=== PATIENT | male | born 1965 | race Caucasian/White ===

== ENCOUNTER 2017-07-26 10:15 | Inpatient (IN) ==
--- NOTE | 2017-07-26 07:04 | Discharge Summary ---
<Vani Aldana - Last Filed: 07/26/17 09:35> Orders not resulted at time of discharge: Pending orders 07/26/17 01:00 XR knee RT limited 1-2V [XR] Routine Hemoglobin and Hematocrit [HEME] Routine Date of Encounter: 07/26/17 - Discharge Diagnosis (1) Arthritis of right knee Priority: Primary Status: Chronic (2) Status post total right knee replacement Priority: Primary Status: Acute - Hospital Course Hospital course: Mr. Zarate is a 52 year old male - Time Spent with Patient Total time spent providing and/or coordinating discharge services: - Discharge Medications Home Medications: Aspirin Enteric Coated [Aspirin EC] 325 mg PO BID 10 Days #20 tablet. [Rx] OxyCODONE Immed Rel [Roxicodone 5 MG] 5 mg PO Q6HR PRN 7 Days #28 tablet [Rx] Allergies/Adverse Reactions: 3 Allergy/AdvReac Type Severity Reaction Status Date / Time No Known Allergies Allergy Verified 07/26/17 10:32 Primary care physician: Norah Levy - Patient Status Disposition: Home, Self-Care Condition: Good - Discharge Instructions Follow Up With: Garrick Malone DO [Primary Care Provider] - <Kunal Ross - Last Filed: 07/27/17 06:25> Orders not resulted at time of discharge: Pending orders 07/26/17 01:00 XR knee RT limited 1-2V [XR] Routine Hemoglobin and Hematocrit [HEME] Routine 07/26/17 11:10 US anesthesia pain block [US] Stat Date of Encounter: 07/27/17 Time of Encounter: 06:24 - Discharge Diagnosis (1) Arthritis of right knee Priority: Primary Status: Chronic (2) Status post total right knee replacement Priority: Primary Status: Acute - Hospital Course Hospital course: Mr. Zarate is a 52 year old male As post right total knee replacement The patient had an uneventful postoperative course. They received antibiotics and physical therapy and were discharged in stable condition. There will follow -up in the office in 2 weeks. - Time Spent with Patient Total time spent providing and/or coordinating discharge services: Primary care physician: Norah Levy - Patient Status Functional capacity at discharge: uses cane/walker Overall status at discharge: patient is progressing back to baseline
[~2017-07-26 10:15] MED LIST: ceFAZolin 2,000 MG in 0.9 % Sodium Chloride 100 ML IVPB SCH
--- NOTE | 2017-07-26 10:20 | Anesthesia Evaluation PreOp ---
Date of Encounter: 07/26/17 Time of Encounter: 11:07 - Past History Planned Operation: right TKA Cardiac History: Denies any Significant Hx Pulmonary History: Denies Any Significant HX SIGNALS COLLECTOR/ANALYST History: Denies Any Significant HX Other Medical History: Denies Any Significant HX Anesthesia History: No Prior Anesthetic Complications, Past Anesthesia (right knee scope with osteochondral autograft 1-18, appy, Left AKS, wrist sx, bilateral shoulder sx) Alcohol Use: none Drug use: none Medications and Allergies Aspirin Enteric Coated [Aspirin EC] 325 mg PO BID 10 Days #20 tablet. [Rx] OxyCODONE Immed Rel [Roxicodone 5 MG] 5 mg PO Q6HR PRN 7 Days #28 tablet [Rx] 3 Allergy/AdvReac Type Severity Reaction Status Date / Time No Known Allergies Allergy Verified 07/26/17 10:32 - Meds/Allergy Pre-op Review Medications Reviewed: Yes Allergies Reviewed: Yes Beta Blockers on Current Med List: No Anesthesia Results - Labs Laboratory Tests 07/20/17 07/20/17 15:44 15:44 Hgb 14.4 Hct 41.5 Plt Count 195 Sodium 141 Potassium 4.9 BUN 17 Creatinine 0.99 Anesthesia Exam Selected Entries 07/26/17 10:35 Temperature 97.8 F Pulse Rate 46 Respiratory Rate 18 Blood Pressure 130/78 O2 Sat by Pulse Oximetry 97 Weight: 85kg - HEENT Pupil (Motor): EOMI Mallampati: III Teeth: Normal Oral Opening: Greater than 3 - SIGNALS COLLECTOR/ANALYST LOC: Oriented SIGNALS COLLECTOR/ANALYST Motor: Normal RUE, Normal LUE, Normal RLE, Normal LLE, Normal Face SIGNALS COLLECTOR/ANALYST Sensory: Normal: RUE, LUE, RLE, LLE, Face - Cardiac Rhythm: Regular Murmur: None - Pulmonary Breath Sounds: bilateral Clear Respiratory Effort: Symmetrical Anesthesia Assess/Plan ASA Score: 1 Modified Stafford Scale for Level of Consciousness: Cooperative, oriented, and tranquil Anesthetic Plan: Regional Monitoring Plan: Standard Monitors Recovery Plan: PACU (Spinal with adductor canal block)
[2017-07-26] MEDS ORDERED: CeFAZolin Syr 2,000MG/20 ML 2,000 MG/20 ML SYRINGE IVPB ONE (10:31)
[2017-07-26] MEDS ORDERED: Ringers Solution, Lactated 1,000 ML IVC SCH (10:45)
[2017-07-26] MEDS ORDERED: Celecoxib 100 MG CAPSULE PO SCH (11:15)
[2017-07-26] MEDS ORDERED: Propofol 500 MG/50 ML INFUS..BTL ONE (11:43)
[2017-07-26] MEDS ORDERED: *HR* Midazolam HCl 2 MG/2 ML VIAL ONE (11:43)
[2017-07-26] MEDS ORDERED: Lidocaine -MPF 2% 2 ML VIAL ONE (11:43)
[2017-07-26] MEDS ORDERED: *HR* FentaNYL (PF) 100 MCG/2 ML VIAL ONE (11:43)
[2017-07-26] MEDS ORDERED: Ondansetron 4 MG/2 ML VIAL ONE ×3 (11:43→16:52)
[2017-07-26] MEDS ORDERED: Morphine Sulfate/PF 5mg/10mL Vial ONE (12:09)
[2017-07-26] MEDS ORDERED: ROPIVACAINE HCL/PF 0.5% 30 ML VIAL ONE (12:10)
--- NOTE | 2017-07-26 12:12 | History & Physical Report ---
Date of Encounter: 07/26/17 Time of Encounter: 12:10 24 Hour HP Update - Instructions Instructions: If the History and Physical is less than 30 days old and was completed prior to A.M. admission and or procedure and has NOT been updated on calendar day of procedure please complete this update prior to performing procedure. - Update Patient reports changes in Medical Condition: No Changes in examination, assessment, or condition: No Changes in Medication: No Preop tests/diagnostics Reviewed: Yes Surgery Remains Indicated: Yes Consent for Planned Operative Procedure(s) Verified: Yes - Pre-Operative Checklist Preoperative Checklist Indicated: No Prophylactic Antibiotic Ordered: Yes Is VTE Prophylaxis Indicated?: Yes
--- NOTE | 2017-07-26 12:52 | Anesthesia Procedures ---
Date of Encounter: 07/26/17 Time of Encounter: 12:50 Procedures: Anesthesia - Nerve Block Procedure Date: 07/26/17 Time: 12:50 Allergies/Adv Reactions: No Known Allergies Allergy (Verified 07/26/17 10:32) Pre-op Diagnosis: oa right knee Surgical Procedure: right total knee Checklist: Correct Patient Identifier, Correct procedure, History checked Correct side: Right Blood Thinner: No Monitor Applied: BP, Pulse Oximetry Sedation: Versed (mg): 2 Sedation: Fentanyl (mcg): 100 Indication: Post Op Analgesia Pre-op Neuro Deficits: No Block Type: Other (ipack) Catheter placed: No Sterile Technique: Yes Ultrasound used: Yes Anatomy identified: Yes Visual spread of Local: Yes Neuro Stimulation: No Blood on Needle Aspiration: No Smooth Injection of Local: Yes Pain with Injection of Local: No Prep: Chlorhexadine Needle: 22 x 50 mm Stimuplex Local: Ropivacaine (0.5%) Volume (cc): 30 Number of Attempts: 1 Complications: None/effective block
[2017-07-26] MEDS ORDERED: Ethanol\\Acetic Acid\\Na Ace\\Ben 1,000 ML IRRIG.SOLN IR ONE (13:00)
[2017-07-26] MEDS ORDERED: EPHEDrine 50 MG/ML VIAL ONE (13:50)
[2017-07-26] MEDS ORDERED: *HR* Meperidine 25 MG/ML SYRINGE IVP PRN (13:53)
[2017-07-26] MEDS ORDERED: *HR* OxyCODONE Immed Rel 5 MG TABLET PO PRN (13:53)
[2017-07-26] MEDS ORDERED: *HR* Promethazine 25 MG/ML VIAL IVP PRN (13:53)
--- NOTE | 2017-07-26 14:24 | Orthopedic Operative Note ---
Date of procedure: 07/26/17 Pre-op diagnosis: Right knee arthritis Post-op diagnosis: same Procedure: Procedure: robotic-assisted Total knee replacement Estimated blood loss: 200 cc Hardware: Metal and polyethylene replacement. [place] press-fit Femur: 5 Tibia:5 PS insert: 11 Patella: 39 Exam Under anesthesia: 6 degrees hyperextension 9 degree varus as calculated by the robot full flexion and no instability Procedural Notes: Operative procedure: The patient was brought to the operating room and placed on the operating room table. After general anesthesia was administered the operative knee was examined. Findings were noted in the exam under anesthesia. The operative extremity was prepped and draped in sterile surgical fashion. The patient received IV antibiotics prior to skin incision. A standard midline incision was made centered over the patella. The incision was made through the skin and subcutaneous tissue. A medial parapatellar tendon approach was performed. Care was taken to preserve tissue along the medial aspect of the patella. And to protect the patella tendon. The deep MCL was released off the medial tibia. The infra patella fat pad was excised. The patella was everted and cut was made at the level of the insertion of the quadriceps and patella tendon. The patella was sized to a 39 the guide was seated and the lug holes are drilled. Knee was brought into flexion. Patient noted to have Steinmann pins were placed in the tibia and the femur for the tibial and femoral arrays respectively. Checkpoints were also placed in the tibia and the femur for calculation purposes. The knee including the femur and the tibial registered. Osteophytes, ACL and PCL were excised at this point. Extension and flexion were assessed with a valgus stress components were adjusted on the computer to balance the knee. Femoral cuts were made first with robotic assistance, these included the anterior cut posterior cuts chamfer cuts. Tibial cut was then performed with robotic assistance as well. Bone fragments were removed, as well as the medial and lateral meniscus. The size 5 femoral guide was seated box cut was made lug holes are drilled. The size 5 tibial tray was seated and prepared with the fin cutter. Trial reduction with the 11 PS Brook[place]nn revealed extension of 0 degree and 8 degree varus full flexion. No varus valgus instability. Trial reduction revealed excellent patella tracking. All trial components were removed all bony surfaces were irrigated. The components were press-fit. The Tibia was seated followed by the femur, The Brooklynn size 11 was seated and secured patella. Patient had similar findings for motion and stability. The knee was closed by the PA. The knee was then irrigated out with 2 L of pulse irrigation. The extensor mechanism was closed with #2 FiberWire suture and #2 PDS suture. The subcutaneous tissue was then irrigated and closed deep with #1 PDS suture superficially with 0 PDS suture and skin was closed with zip tie The patient was then placed in a sterile dressing and a postoperative brace extubated and transferred to recovery room in stable condition. Anesthesia: spinal Surgeon: Kunal Ross Was there an visitor use assistant present: Yes Balance Screwhead Polisher: Vani Aldana Estimated blood loss (cc): 200 Condition: stable Disposition: PACU
[2017-07-26] MEDS ORDERED: *HR* Propofol 200 MG/20 ML VIAL IVP ONE (14:33)
[2017-07-26] MEDS ORDERED: Naloxone 0.4 MG/ML INJ IVP PRN ×3 (15:33→16:28)
--- NOTE | 2017-07-26 15:36 | Anesthesia Evaluation Post Op ---
Date of Encounter: 07/26/17 Time of Encounter: 15:35 - Vital Signs Vital Signs: Last Vital Signs Temp 97.5 F L 07/26/17 15:26 Pulse 46 07/26/17 15:26 Resp 16 07/26/17 15:26 BP 106/64 07/26/17 15:26 Pulse Ox 97 07/26/17 15:26 - Lungs Lungs: Clear Ascult./Percussion - Airway Airway: Non-obstructed - Cardiovascular Regular Rate - Mental Status Mental Status: Alert & Oriented, Answers Appropriately - Pain Pain Scale: 1 - Nausea Vomiting Nausea Vomiting: Not Present - Hydration Hydration: NPO - Discharge PostOp Status: Transfer Patient to floor
[2017-07-26 16:08] LABS: Hematocrit 41.5 % (37.5-50.1); Hemoglobin 14.3 g/dL (12.9-16.9)
[2017-07-26] MEDS ORDERED: Temazepam 15 MG CAPSULE PO PRN (16:28)
[2017-07-26] MEDS ORDERED: MOM Conc 10 ML UD.LIQ PO PRN (16:28)
[2017-07-26] MEDS ORDERED: Sennosides 8.6 MG TABLET PO PRN (16:28)
[2017-07-26] MEDS: Ondansetron 4 MG/2 ML VIAL IVP PRN ×2 (16:58→22:41)
[2017-07-26] MEDS: Ringers Solution, Lactated 1,000 ML IVC SCH (17:15)
[2017-07-26] MEDS: *HR* Enoxaparin 30 MG/0.3 ML SYRINGE SQ SCH (17:17)
[2017-07-26] MEDS ORDERED: *HR* Promethazine 25 MG/ML VIAL ONE (17:44)
[2017-07-26] MEDS: *HR* Promethazine 25 MG/ML VIAL IVP PRN (17:46)
[2017-07-26] MEDS ORDERED: *HR* Enoxaparin 30 MG/0.3 ML SYRINGE SQ SCH (18:00)
[2017-07-26] MEDS: *HR* OxyCODONE/APAP 5/325 TABLET PO PRN (21:44)
[2017-07-26] MEDS: ceFAZolin 2,000 MG in 0.9 % Sodium Chloride 100 ML IVPB SCH (21:44)
[2017-07-27] MEDS: traMADol 50 MG TABLET PO PRN ×2 (00:02→19:11)
[2017-07-27] MEDS: *HR* OxyCODONE Immed Rel 5 MG TABLET PO PRN ×4 (05:12→21:27)
[2017-07-27] MEDS: ceFAZolin 2,000 MG in 0.9 % Sodium Chloride 100 ML IVPB SCH (05:12)
[2017-07-27] MEDS: Ondansetron 4 MG/2 ML VIAL IVP PRN (05:13)
[2017-07-27] MEDS: *HR* Enoxaparin 30 MG/0.3 ML SYRINGE SQ SCH ×2 (05:13→17:27)
[2017-07-27 05:32] LABS: Hematocrit 37.2 % (37.5-50.1)
[2017-07-27 05:40] LABS: Hemoglobin 12.6 g/dL (12.9-16.9)
[2017-07-27 05:47] LABS: BUN/Creatinine Ratio 14 (6-26); Blood Urea Nitrogen 12 mg/dL (6-20); Calcium 8.6 mg/dL (8.6-10.3); Carbon Dioxide 27 mEq/L (23-29); Chloride 105 mEq/L (98-107); Glucose 138 mg/dL (70-105); Osmolality,Calculated 288 (280-300); Potassium 4.1 mEq/L (3.5-5.1); Sodium 138 mEq/L (136-145); eGFR For African Americans > 60 (> 60); eGFR For Non-African Americans > 60 (> 60)
[2017-07-27] MEDS: *HR* Promethazine 25 MG/ML VIAL IVP PRN (06:16)
--- NOTE | 2017-07-27 06:26 | Orthopedics Progress Note ---
Date of Encounter: 07/27/17 Time of Encounter: 06:25 - Assessment and Plan (1) Arthritis of right knee Current Visit: No Status: Chronic (2) Status post total right knee replacement Current Visit: No Status: Acute Subjective Interval history: Patient was seen this morning doing well nauseated this morning Afebrile vital signs stable. Operative extremity: Neurovascularly intact Dressing clean dry and intact Calves nontender Assessment and plan: Continue with postoperative care Labs all within normal limits, discharged today Objective Vital signs: Vital Signs Temp Pulse Resp BP Pulse Ox 07/27/17 04:12 99.2 F 54 16 111/66 93 07/27/17 00:35 99.4 F 56 18 112/69 93 07/26/17 19:05 97.6 F 50 14 120/66 97 07/26/17 18:41 98.1 F 53 16 117/65 97 07/26/17 18:05 97.6 F 50 15 121/75 97 07/26/17 17:03 97.6 F 43 15 127/66 98 07/26/17 16:45 97.5 F L 45 14 134/68 97 07/26/17 16:15 97.5 F L 44 15 111/64 98 07/26/17 15:39 97.1 F L 53 16 106/65 99 07/26/17 15:26 97.5 F L 46 16 106/64 97 07/26/17 15:16 58 16 105/63 96 07/26/17 15:06 50 20 104/60 100 07/26/17 14:56 97.9 F 53 20 106/62 98 07/26/17 13:08 49 117/67 97 07/26/17 12:49 53 129/69 98 07/26/17 12:30 42 124/76 98 07/26/17 10:35 97.8 F 46 18 130/78 97 Intake and Output 07/26/17 07/26/17 07/27/17 15:59 23:59 07:59 Intake Total 20 / 20 200 / 200 400 / 400 Output Total 200 / 200 750 / 750 Balance -180 / -180 -550 / -550 400 / 400 Intake: IV Fluids 20 / 20 100 / 100 Ancef Syringe 2,000 MG/20 ML 2, 20 / 20 000 mg In 20 ml @ 200 mls/hr IVPB PREOP ONE Rx#:[id number] Ancef 2,000 MG In 0.9 % Sodium 100 / 100 Chloride 100 ML @ 200 mls/hr IVPB Q8H [facility] Rx#:[id number] Oral 200 / 200 300 / 300 Output: Estimated Blood Loss 200 / 200 Straight Cath 750 / 750 Other: Weight 85.275 kg - Labs CBC & BMP: 07/27/17 04:52 07/27/17 04:52 Labs: Abnormal lab results Hgb 12.6 g/dL (12.9-16.9) L D 07/27/17 04:52 Hct 37.2 % (37.5-50.1) L 07/27/17 04:52 Glucose 138 mg/dL (70-105) H 07/27/17 04:52 - VTE Documentation of Mechanical Device: Venous foot pump, device Consult Discharge Plan - Plan Referrals: Garrick Malone DO [Primary Care Provider] -
[2017-07-27] MEDS ORDERED: 0.9 % Sodium Chloride 500 ML IVC ONE (08:27)
[2017-07-27] MEDS: Acetaminophen 325 MG TABLET PO PRN ×2 (08:51→20:26)
[2017-07-27] MEDS ORDERED: Ondansetron 4 MG/2 ML VIAL IVP SCH (09:00)
[2017-07-27] MEDS ORDERED: Scopolamine Patch 1.5 MG PATCH.TD72 TD SCH (09:45)
[2017-07-27] MEDS ORDERED: Ondansetron 4 MG/2 ML VIAL IVP PRN (12:53)
[2017-07-27] MEDS: *HR* OxyCODONE/APAP 5/325 TABLET PO PRN (15:28)
--- NOTE | 2017-07-27 15:48 | Event Note ---
Date of Encounter: 07/27/17 Time of Encounter: 15:46 PCR - POD#1 Right TKR 07/26/17 Patient seen at bedside. Urinary retention - straight cath x 2 - bladder scan showing 400mL - straight cath'ed 700ml + N/V with intermitent fever Labs reviewed. Pain control: adequate Participating in PT. All questions and concerns addressed. Educated on use of incentive spirometer. Encouraged ambulation and proper hydration. Patient educated on post-operative restrictions and post-operative care. Addressed: Hydration and IS Scopalamine patch given encouraging eating with pain medication May need urologic consult for urinary retention - known family history of prostate disease but otherwise no personal history Discharge plan: Home with OP once stable and urinating on his own. Likely tomorrow. May require marie catheter if unable to void
[2017-07-28] MEDS: Ringers Solution, Lactated 1,000 ML IVC SCH (00:18)
[2017-07-28] MEDS: *HR* OxyCODONE Immed Rel 5 MG TABLET PO PRN ×4 (01:27→13:39)
[2017-07-28] MEDS: traMADol 50 MG TABLET PO PRN (03:32)
[2017-07-28 03:50] LABS: Hematocrit 36.6 % (37.5-50.1); Hemoglobin 12.6 g/dL (12.9-16.9)
[2017-07-28 03:51] LABS: BUN/Creatinine Ratio 11 (6-26); Blood Urea Nitrogen 10 mg/dL (6-20); Calcium 8.9 mg/dL (8.6-10.3); Carbon Dioxide 26 mEq/L (23-29); Chloride 106 mEq/L (98-107); Glucose 114 mg/dL (70-105); Osmolality,Calculated 288 (280-300); Potassium 3.8 mEq/L (3.5-5.1); Sodium 139 mEq/L (136-145); eGFR For African Americans > 60 (> 60); eGFR For Non-African Americans > 60 (> 60)
[2017-07-28] MEDS: *HR* Enoxaparin 30 MG/0.3 ML SYRINGE SQ SCH (05:30)
[2017-07-28] MEDS: Acetaminophen 325 MG TABLET PO PRN (08:59)
--- NOTE | 2017-07-28 12:43 | Orthopedics Progress Note ---
Date of Encounter: 07/28/17 Time of Encounter: 09:40 - Assessment and Plan (1) Status post total right knee replacement Current Visit: No Status: Acute POD#2 Patient was seen this morning doing well, without complaints. Voiding on his own - urinary retention resolved. Afebrile, vital signs stable. Labs reviewed. H/H - stable, asymptomatic - 12.6/36.6 Pain control: adequate Participating in PT. Educated on use of incentive spirometer. Encouraged ambulation and proper hydration. Patient educated on post-operative restrictions and post-operative care. Assessment and plan: Continue with postoperative care Discharge plan: Home, discharge today with HH - Continuity placed. Place Lidoderm patch before leaving. (2) Acute urinary retention Current Visit: Yes Status: Resolved Required 3 straight catherizations while inpatient. Began voiding on his on at 330AM on 07/28. No subsequent complications. Encouraged hydration. (3) Arthritis of right knee Current Visit: No Status: Chronic Subjective Principal diagnosis: s/p Right TKR 07/26 Interval history: Patient seen at bedside. Patient was seen this morning doing well, without complaints. Voiding on his own - urinary retention resolved. Afebrile, vital signs stable. Operative extremity: Neurovascularly intact Dressing clean dry and intact Calf nontender Labs reviewed. H/H - stable, asymptomatic - 12.6/36.6 Pain control: adequate Participating in PT. All questions and concerns addressed. Educated on use of incentive spirometer. Encouraged ambulation and proper hydration. Patient educated on post-operative restrictions and post-operative care. Assessment and plan: Continue with postoperative care Discharge plan: Home, discharge today with HH - Continuity placed. Place Lidoderm patch before leaving Objective Vital signs: Vital Signs Temp Pulse Resp BP Pulse Ox 07/28/17 11:01 98.7 F 64 18 112/57 07/28/17 06:48 98.9 F 60 17 122/72 94 07/28/17 03:35 97.5 F L 50 16 141/72 96 07/27/17 23:28 98.4 F 51 16 119/63 94 07/27/17 19:15 100.1 F H 87 16 154/74 97 07/27/17 15:40 98.1 F 59 14 129/74 96 Intake and Output 07/27/17 07/28/17 07/28/17 23:59 07:59 15:59 Intake Total 100 / 100 830 / 830 Output Total 1125 / 1125 100 / 100 Balance -1125 / -1125 100 / 100 730 / 730 Intake: IV Fluids 710 / 710 Lactated Ringers 1,000 ML @ 75 710 / 710 mls/hr IVC .[id number] Rx#: [id number] Oral 100 / 100 120 / 120 Output: Urine 100 / 100 Straight Cath 1125 / 1125 Other: Meal Breakfast Percent of Meal Consumed 35% # Voids 1 1 Incision: clean and dry - Labs CBC & BMP: 07/28/17 03:16 07/28/17 03:16 Labs: Abnormal lab results Hgb 12.6 g/dL (12.9-16.9) L 07/28/17 03:16 Hct 36.6 % (37.5-50.1) L 07/28/17 03:16 Glucose 114 mg/dL (70-105) H 07/28/17 03:16 - VTE Documentation of Mechanical Device: Intermittent pneumatic compression device Consult Discharge Plan - Plan Additional Instructions: Discharge Instructions: Total Knee Replacement Please call [facility] ([phone]), your Primary Care Physician, or report to the Emergency Room if you have any of the following symptoms: Nausea, vomiting, fever greater that 101.5, swelling, chest pain, shortness of breath, increased pain/redness/drainage/odor for your incision site, numbness/ tingling, or any other concerning symptoms. ACTIVITY:Weight-bearing as tolerated. You may progress off support (crutches or walker) as tolerated. MEDICATIONS: Upon discharge resume your home medications. Take all the medications as prescribed. Take a stool softener if taking narcotic pain medications. Stool softeners are only effective if you drink enough fluids. Drink 6-8 glass of water or fluids a day, unless this is not allowed for another health problem. Despite using stool softeners, if you haven't had a bowel movement in 3 days, please switch to a gentle laxative. Gentle laxatives are sold over the counter. You should have a bowel movement within 24 hours, if not call the office. You will be discharged from the hospital with a prescription for pain medication. You are encouraged to decrease the use of narcotic pain medication as tolerated. Should you require a refill, please call the office. [facility] prescribes narcotic pain medication for only 4-6 weeks after surgery. If you require pain medication beyond this time period, you may be referred to your Primary Care Physician or to the Pain Clinic for further evaluation. Plan ahead for refills on pain medication as many narcotics either need to be picked up at the office or mailed. It is best to call 48-72 hours in advance of needing a prescription refill so you don't run out of medication. To help control the post-operative pain, you may take NSAIDs (Aleve,Advil, Motrin, Ibuprofen, Naprosyn) or Tylenol as prescribed on the bottle in addition to the pain medication. ANTICOAGULATION (blood thinners): Continue your Aspirin, Lovenox or Coumadin as prescribed to help prevent a blood clot in the leg or in the lungs. As long as your incision remains dry and you tolerate the NSAIDs (Aleve, Advil, Motrin, ibuprofen, naprosyn), it is OK to use the NSAIDS while you are taking your anticoagulation medication. Should your incision start to drain, stop the NSAID and contact our office. Common symptoms of blood clot in the legs include: localized pain, swelling, calf tenderness, redness or discoloration of the skin. Blood clot in the lung symptoms include: shortness of breath, rapid pulse, sweating, and chest pain that worsens with deep breathing, coughing up blood, lightheadedness, feelings of anxiety. If you experience any of these symptoms notify your physician immediately, go to the emergency room, or if having trouble breathing, call 911. WOUND CARE: Leave the dressing on for 7 to 10days. You may change the dressing if it becomes saturated greater than 50%. Do not get the dressing wet at anytime. Wash your hands with antibacterial soap, rinse and dry prior to any wound care. If you have donna the visiting nurse or rehab facility can remove the stapes 10-14 days after surgery and place steri-strips across the wound. Leave the steri-strips in place until they fall off on their won. You may let water from the shower run on top of the steri-strips. If you do not have a visiting nurse or rehab facility, you will need to return to the office at 10-14 days for the donna to be removed. If you have itching or redness around the dressing call the office. FOLLOW-UP: Please follow up with your surgeon in the orthopedic clinic in 4 weeks from the day of surgery. If you have donna that need to be removed, you will need to come back to the office in 10-14 days from the day of surgery. Referrals: Kunal Ross MD [Partnered Physician] - 08/25/17 5:15 pm Yoly Miller PAC [Physician Defense Analyst] - 08/05/17 8:15 am (Also August 13 at 0845) Garrick Malone DO [Primary Care Provider] -
--- NOTE | 2017-07-28 13:28 | Physician Discharge Referral ---
Home Health/Hosp Referral Info Transfer to: Home Health Attending Provider: Provider in Charge Post Discharge: PCP - Diagnosis (1) Status post total right knee replacement Priority: Primary Status: Acute (2) Acute urinary retention Priority: Primary Status: Resolved (3) Arthritis of right knee Priority: Primary Status: Chronic - Respiratory Orders None Smoking Cessation: Smoking cessation has been advised. For more information, call the [employer] Tobacco Quit Line at 5-442-JEYA-NOW. - Diet/Nutrition Diet/Nutrition Orders: Regular - Activity Activity Orders: Up ad tiffany, Ambulate, Chair, Walker - Services Needed Following services are medically necessary services: Nursing, Home Health Aide, Physical Therapy, Occupational Therapy Home Care Orders: Opsite dressing, leave intact until first post-operative visit. If dressing becomes >50% saturated, contact office, remove dressing and place appropriate dressing in its place. Zipline in place, plan to remove at post-operative day #14-16. Total Joint Precautions x 6 weeks Apply cold therapy wrap 3-6x/day for 20 minutes at a time. Encourage ambulation throughout the day Use Incentive spirometer 10x/hour. Elevate affected extremity above heart as tolerated. Brace: Wear knee immobilizer at night x 2 week - Transfer Medications Home Medications: Aspirin Enteric Coated [Aspirin EC] 325 mg PO BID 10 Days #20 tablet. [Rx] OxyCODONE Immed Rel [Roxicodone 5 MG] 5 mg PO Q6HR PRN 7 Days #28 tablet [Rx] Allergies/Adverse Reactions: 3 Allergy/AdvReac Type Severity Reaction Status Date / Time No Known Allergies Allergy Verified 07/26/17 10:32 Certification: Further, I certify that my clinical findings support that this patient is homebound (i.e. absences from home require considerable and taxing effort and are for medical reasons or buddhist services or infrequently or short duration when for other reasons) because: Homebound Reason: Post-surgery restriction and or conditions limit ability to leave home Attestation: My signature below is to certify that this patient is under my care and that I, or nurse practitioner, or a physician's veterinarian assistant working with me, has a face-to -face encounter with this patient.
[2017-07-28 15:41] VITALS: BP 124/70
== END 2017-07-28 16:00 | disposition home or self-care (01) | DRG 470 ==
LOC: SAMDAY 10:15 → 3NENU 16:24
PROVIDERS: ADMIT Orthopaedic Surgery; ATTEND Orthopaedic Surgery